=== PATIENT | female | born 1980 | race Two or more races ===

== ENCOUNTER 2020-10-12 08:08 | Emergency (ER) | payer OTHER ==
[~2020-10-12] VITALS: Ht 175.3 cm; Wt 85.0 kg
[2020-10-12] MEDS ORDERED: ORPHENADRINE CITRATE 60 MG/2 ML VIAL. IM ONE (08:45)
[2020-10-12] MEDS ORDERED: KETOROLAC 60 MG/2 ML VIAL. IM ONE (08:45)
--- NOTE | 2020-10-12 09:16 | RAD ---
XR LUMBAR SPINE 2-3V History: Reason: lower back pain for 5 days / Spl. Instructions: / History: Technique: 3 views lumbar spine. Comparison: None. Findings: Normal vertebral body height and alignment. No fracture. Mild disc space narrowing. IUD noted project ing over the pelvis. Impression: 1. No acute osseous abnormality. Electronically signed by: Raf Arciniega DO (10/12/2020 9:13 AM) [id number]
--- NOTE | 2020-10-12 09:19 | PHYS DOC ---
Past History Past Medical History: Other (back pain) Past Surgical History: No Surgical History Alcohol Use: None General Adult EDM: Chief Complaint: BACK PAIN - NO INJURY HPI: HPI: Patient is a 39-year-old female who presented to ER due to low back pain for the last 5 days. 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 The pain is more like muscle spasm in nature. Patient denies any bowel or bladder incontinence. Patient denies any heavy lifting. Patient denies any numbness or weakness in her lower extremity. Patient denies any abdominal pain, no nausea vomiting. Review of Systems: Review of Systems: Constitutional: Denies fever or chills Eyes: Denies change in visual acuity HENT: Denies nasal congestion or sore throat Respiratory: Denies cough or shortness of breath Cardiovascular: Denies chest pain or edema GI: Denies abdominal pain, nausea, vomiting, bloody stools or diarrhea : Denies dysuria Musculoskeletal: Positive for low back pain. Integument: Denies rash Neurologic: Denies headache, focal weakness or sensory changes Endocrine: Denies polyuria or polydipsia Lymphatic: Denies swollen glands Psychiatric: Denies depression or anxiety Current Medications: Current Meds: Current Medications Medications (Trade) Dose Ordered Sig/George Start Time Stop Time Status Last Admin Dose Admin Ketorolac Tromethamine (Toradol Im) 60 mg 1X ONCE 10/12/20 08:45 10/12/20 08:46 DC 10/12/20 08:44 60 MG Orphenadrine Citrate (Norflex) 60 mg 1X ONCE 10/12/20 08:45 10/12/20 08:46 DC 10/12/20 08:44 60 MG Allergies: Allergies: Allergies Coded Allergies Type Severity Reaction Last Updated Verified No Known Drug Allergies 10/12/20 No Physical Exam: PE: Constitutional: Well developed, well nourished, no acute distress, non-toxic appearance. [] HENT: Normocephalic, atraumatic, bilateral external ears normal, oropharynx moist, no oral exudates, nose normal. [] Eyes: PERRLA, EOMI, conjunctiva normal, no discharge. [] Neck: Normal range of motion, no tenderness, supple, no stridor. [] Cardiovascular:Heart rate regular rhythm, no murmur [] Lungs & Thorax: Bilateral breath sounds clear to auscultation [] Abdomen: Bowel sounds normal, soft, no tenderness, no masses, no pulsatile masses. [] Skin: Warm, dry, no erythema, no rash. [] Back: No tenderness, no CVA tenderness. [] Extremities: No tenderness, no cyanosis, no clubbing, ROM intact, no edema. [] Neurologic: Alert and oriented X 3, normal motor function, normal sensory function, no focal deficits noted. [] Psychologic: Affect normal, judgement normal, mood normal. [] Current Patient Data: Vital Signs: Vital Signs Date Time Temp Pulse Resp B/P (MAP) Pulse Ox O2 Delivery O2 Flow Rate FiO2 10/12/20 08:21 97.8 75 16 103/70 (81 100 Room Air EKG: EKG: [] Radiology/Procedures: Radiology/Procedures: [][place] [address] IMAGING REPORT Signed PATIENT: MORELIA SHEARER YACCOUNT: [id number] : 1980 LOCATION: ER AGE: 39 SEX: F EXAM STATUS: REG ER ORD. PHYSICIAN: NORY TURPIN DO REASON: lower back pain for 5 days PROCEDURE: LUMBAR SPINE 2-3V XR LUMBAR SPINE 2-3V History: Reason: lower back pain for 5 days / Spl. Instructions: / History: Technique: 3 views lumbar spine. Comparison: None. Findings: Normal vertebral body height and alignment. No fracture. Mild disc space narrowing. IUD noted projecting over the pelvis. Impression: 1. No acute osseous abnormality. Electronically signed by: Raf Arciniega DO (10/12/2020 9:13 AM) [id number] DICTATED AND SIGNED BY: RAF ARCINIEGA DO DATE: 10/12/20 0903 CC: NORY TURPIN DO; ARTURO CHAN DO, MPH ~MTH0 0 Heart Score: C/O Chest Pain: N/A Risk Factors: Risk Factors: DM, Current or recent (<one month) smoker, HTN, HLP, family history of CAD, obesity. Risk Scores: Score 0 - 3: 2.5% MACE over next 6 weeks - Discharge Home Score 4 - 6: 20.3% MACE over next 6 weeks - Admit for Clinical Observation Score 7 - 10: 72.7% MACE over next 6 weeks - Early Invasive Strategies Course & Med Decision Making: Course & Med Decision Making Pertinent Labs and Imaging studies reviewed. (See chart for details) Juan Disclaimer: Dragon Disclaimer: This electronic medical record was generated, in whole or in part, using a voice recognition dictation system. Departure Departure: Impression: Primary Impression: Back pain Disposition: 01 DC HOME SELF CARE/HOMELESS Condition: STABLE Referrals: ARTURO CHAN DO, M[facility] (PCP) follow up with your doctor this week. Patient Instructions: Back Pain, Adult Additional Instructions: Thank you for visiting our Emergency Department. We appreciate you trusting us with your care. If any additional problems come up don't hesitate to return to visit us. Please follow up with your primary care provider so they can plan additional care if needed and know about the problem that you had. If symptoms worsen come back to the Emergency Department. Any concerning symptoms that start such as chest pain, shortness of air, weakness or numbness on one side of the body, running high fevers or any other concerning symptoms return to the ER. Scripts Naproxen Sodium (ANAPROX DS) 550 Mg Tablet 1 TAB PO BID PRN for back pain for 15 Days, #30 TAB 0 Refills Prov: NORY TURPIN DO 10/12/20 Cyclobenzaprine Hcl (CYCLOBENZAPRINE HCL) 10 Mg Tablet 1 TAB PO TID PRN for back pain, muscle spasm, #20 TAB Prov: NORY TURPIN DO 10/12/20 Prednisone (PREDNISONE) 20 Mg Tablet 2 TAB PO DAILY for back pain for 5 Days, #10 TAB Prov: NORY TURPIN DO 10/12/20 NORY TURPIN DO Oct 12, 2020 09:19
[2020-10-12 10:00] VITALS: BP 106/64
[2020-10-12] MEDS ORDERED: CYCL-331 PO (10:06)
[2020-10-12] MEDS ORDERED: NAPR-682 PO (10:06)
[2020-10-12] MEDS ORDERED: PRED20TA PO (10:06)
== END 2020-10-12 10:18 | disposition home or self-care (01) ==
LOC: ER 08:08
DX: M54.5 Low back pain (principal); M62.830 Muscle spasm of back
CPT/HCPCS: 72100; 96372; 99284; J1885; J2360

== ENCOUNTER 2020-11-23 12:41 | Emergency (ER) | payer OTHER ==
[~2020-11-23] VITALS: Ht 180.3 cm; Wt 97.9 kg
[~2020-11-23 12:41] MED LIST: CYCL-331 PO; NAPR-682 PO; PRED20TA PO
[2020-11-23 12:54] VITALS: BP 120/76
--- NOTE | 2020-11-23 13:28 | RAD ---
EXAM: Bilateral hand and wrist DATE: 11/23/2020 1:10 PM INDICATIONS: Reason: BILATERAL 5TH DIGITS PAIN / Spl. Instructions: / History: COMPARISON: No prior FINDINGS: PA, oblique and lateral views of the hand and wrist bilaterally show normal symmetric bone density. Regional joint spaces are preserved. Negative degenerative changes. Negative erosive type ch anges. Negative periarticular soft tissue calcifications or chondrocalcinosis. Negative focal soft ti ssue swelling. No evidence of acute fracture or dislocation. IMPRESSION: No acute fracture or dislocation. No radiographic findings of inflammatory or erosive arthropathy. Electronically signed by: Andrei Corley MD (11/23/2020 1:26 PM) [id number]
--- NOTE | 2020-11-23 13:38 | PHYS DOC ---
Past History Past Medical History: No Pertinent History Past Surgical History: No Surgical History Alcohol Use: Rarely General Adult EDM: Chief Complaint: FINGER INJURY HPI: HPI: Patient is a 40-year-old female who presents with bilateral, fifth digit pain after jamming it while playing football. Patient states that she has had pain since injury. Patient still has full range of motion. Patient denies health history. Review of Systems: Review of Systems: Constitutional: Denies fever or chills Eyes: Denies change in visual acuity HENT: Denies nasal congestion or sore throat Respiratory: Denies cough or shortness of breath Cardiovascular: Denies chest pain or edema GI: Denies abdominal pain, nausea, vomiting, bloody stools or diarrhea : Denies dysuria Musculoskeletal: Denies back pain, reporting bilateral, fifth digit pain Integument: Denies rash Neurologic: Denies headache, focal weakness or sensory changes Endocrine: Denies polyuria or polydipsia Lymphatic: Denies swollen glands Psychiatric: Denies depression or anxiety Allergies: Allergies: Allergies Coded Allergies Type Severity Reaction Last Updated Verified No Known Drug Allergies 10/12/20 No Physical Exam: PE: Constitutional: Well developed, well nourished, no acute distress, non-toxic appearance. [] HENT: Normocephalic, atraumatic, bilateral external ears normal, oropharynx moist, no oral exudates, nose normal. [] Eyes: PERRLA, EOMI, conjunctiva normal, no discharge. [] Neck: Normal range of motion, no tenderness, supple, no stridor. [] Cardiovascular:Heart rate regular rhythm, no murmur [] Lungs & Thorax: Bilateral breath sounds clear to auscultation [] Abdomen: Bowel sounds normal, soft, no tenderness, no masses, no pulsatile masses. [] Skin: Warm, dry, no erythema, no rash. [] Back: No tenderness, no CVA tenderness. [] Extremities: Bilateral, fifth digit tenderness, ROM intact, no edema. [] Neurologic: Alert and oriented X 3, normal motor function, normal sensory function, no focal deficits noted. [] Psychologic: Affect normal, judgement normal, mood normal. [] Current Patient Data: Vital Signs: Vital Signs Date Time Temp Pulse Resp B/P (MAP) Pulse Ox O2 Delivery O2 Flow Rate FiO2 11/23/20 12:54 97.5 80 16 120/76 (91) 100 Room Air EKG: EKG: [] Radiology/Procedures: Radiology/Procedures: []EXAM: Bilateral hand and wrist DATE: 11/23/2020 1:10 PM INDICATIONS: Reason: BILATERAL 5TH DIGITS PAIN / Spl. Instructions: / History: COMPARISON: No prior FINDINGS: PA, oblique and lateral views of the hand and wrist bilaterally show normal symmetric bone density. Regional joint spaces are preserved. Negative degenerative changes. Negative erosive type changes. Negative periarticular soft tissue calcifications or chondrocalcinosis. Negative focal soft tissue swelling. No evidence of acute fracture or dislocation. IMPRESSION: No acute fracture or dislocation. No radiographic findings of inflammatory or erosive arthropathy. Electronically signed by: Anrdei Corley MD (11/23/2020 1:26 PM) [id number] Heart Score: C/O Chest Pain: No Risk Factors: Risk Factors: DM, Current or recent (<one month) smoker, HTN, HLP, family history of CAD, obesity. Risk Scores: Score 0 - 3: 2.5% MACE over next 6 weeks - Discharge Home Score 4 - 6: 20.3% MACE over next 6 weeks - Admit for Clinical Observation Score 7 - 10: 72.7% MACE over next 6 weeks - Early Invasive Strategies Course & Med Decision Making: Course & Med Decision Making Pertinent Labs and Imaging studies reviewed. (See chart for details) [] Patient is being seen for pain bilaterally to her fifth digits. Patient was playing football when she caught the ball, she jammed both fingers. Patient was concerned that she had fractured her fingers. Patient has full range of motion, no swelling noted. Bilateral hand x-ray ordered to rule out fracture. Imaging was negative for fracture. Patient instructed to take ibuprofen and Tylenol at home for discomfort. Patient instructed to make an appointment with her PCP for follow-up management. Patient is appreciative and okay with discharge plan. Juan Disclaimer: Juan Disclaimer: This electronic medical record was generated, in whole or in part, using a voice recognition dictation system. Departure Departure: Impression: Primary Impression: Sprain of finger of left hand Qualified Codes: S63.617A - Unspecified sprain of left little finger, initial encounter Additional Impression: Sprain of finger of right hand Qualified Codes: S63.616A - Unspecified sprain of right little finger, initial encounter Disposition: 01 HOME / SELF CARE / HOMELESS Condition: STABLE Referrals: ARTURO CHAN DO, M[facility] (PCP) Patient Instructions: Finger Sprain, [id number] Additional Instructions: You were seen in the emergency room for an x-ray after injuring both of your pinky fingers while playing football. Your x-ray was negative for fracture. You can take ibuprofen and Tylenol at home for discomfort. Please follow-up with your PCP for further management if you continue to have discomfort. Please return emergency room with worsening symptoms or concerns EMERGENCY DEPARTMENT GENERAL DISCHARGE INSTRUCTIONS Thank you for coming to [facility] (ED) today and trusting us with you care. We trust that you had a positivie experience in our Emergency Department. If you wish to speak to the department management, you may call the director at [phone]. YOUR FOLLOW UP INSTRUCTIONS ARE FOLLOWS: 1. Do you have a private Doctor? If you do not have a private doctor, please ask for a resource list of physicians or clinics that may be able to assist you with follow up care. 2. The Emergency Physician has interpreted your x-rays. The X-Ray specialist will also review them. If there is a change in the findings, you will be notified in 48 hours when at all possible. 3. A lab test or culture has been done, your results will be reviewed and you will be notified if you need a change in treatment. ADDITIONAL INSTRUCTIONS AND INFORMATION: 1. Your care today has been supervised by a physician who is specially trained in emergency care. Many problems require more than one evaluation for a complete diagnosis and treatment. We recommend that you schedule your follow up appointment as recommended to ensure complete treatment of you illness or injury. If you are unable to obtain follow up care and continue to have a problem, or if your condition worsens, we recommend that you return to the ED. 2. We are not able to safely determine your condition over the phone nor are we able to give sound medical advice over the phone. For these safety reasons, if you call for medical advice we will ask you to come to the ED for further evaluation. 3. If you have any questions regarding these discharge instructions please call the ED at [phone]. SAFETY INFORMATION: In the interest of safety, wellness, and injury prevention; we encourage you to wear your sealbelt, if you smoke; quite smoking, and we encourage family to use a protective helmet for bicycling and other sporting events that present an increased risk for head injury. IF YOUR SYMPTOMS WORSEN OR NEW SYMPTOMS DEVELOP, OR YOU HAVE CONCERNS ABOUT YOUR CONDITION; OR IF YOUR CONDITION WORSENS WHILE YOU ARE WAITING FOR YOUR FOLLOW UP APPOINTMENT; EITHER CONTACT YOUR PRIMARY CARE DOCTOR, THE PHYSICIAN WHOSE NAME AND NUMBER YOU WERE GIVEN, OR RETURN TO THE ED IMMEDIATELY. CADEN MOISE APRN November 23, 2020 13:38
== END 2020-11-23 14:10 | disposition home or self-care (01) ==
LOC: ER 12:41
DX: S63.617A Unspecified sprain of left little finger, initial encounter (principal); S63.616A Unspecified sprain of right little finger, initial encounter; W23.0XXA Caught, crushed, jammed, or pinched between moving objects, initial encounter; Y93.61 Activity, american tackle football; Y92.89 Other specified places as the place of occurrence of the external cause; Y99.8 Other external cause status
CPT/HCPCS: 73130; 99283